=== PATIENT | male | born 1940 | race Caucasian/White ===

== ENCOUNTER 2016-09-09 09:41 | Emergency (ER) | payer OTHER ==
[~2016-09-09] VITALS: Ht 175.3 cm; Wt 89.1 kg
[~2016-09-09 09:41] MED LIST: ATARAX,VISTARIL25 MG PO; AVENTYL,PAMELOR10 M1 NG; AVONEX30 MCG/0.5 IM; AVONEX30 MICROGR IM; BACLOFEN10 MG PO; BETASERON0.3 MG SC; BETASERON0.3 MG SQ; BUDEPRION XL150 MG PO; BUPROPION HCL100 MG PO; Bactrim,Septra DS 80 PO; CALCIUM; CALCIUM 600 +1 EAC1 PO; CALCIUM 600 +1 EAC5 PO; CEFTIN250 MG PO; CIPROFLOXACIN500 M1 PO; CRANBERRY500 M2 PO; CRANBERRY500 MG PO; Cipro PO; DONEPEZIL HCL10 MG PO; EXCEDRIN EXTRA1 EACH PO; GABAPENTIN300 M1 PO; GABAPENTIN300 MG PO; HYDROCORTISONE30 G2 TP; LEVAQUIN500 MG PO; LISINOPRIL10 MG PO; Levaquin PO; Lioresal PO; MACROBID100 MG PO; MANDELAMINE500 MG PO; METHENAMINE HIPP1 G1 PO; MUCUS RELIEF C400 MG; NEURONTIN300 MG PO; OSCAL, OYSTER500 MG; OSCAL, OYSTER500 MG PO; PAROXETINE HCL20 MG PO; PAXIL20 M1 PO; PAXIL20 MG PO; Paxil PO; UTAC TABLET1 EACH PO; VESICARE5 MG PO; WELLBUTRIN XL150 MG PO; WELLBUTRIN100 MG PO; Wellbutrin PO; Wellbutrin SR PO; ZESTORETIC,P1 TABLET PO; ZESTRIL,PRINIVI10 M1 PO; ZESTRIL,PRINIVI10 MG PO; ZESTRIL10 MG PO; ZYVOX600 MG PO; Zestoretic,Prinzide PO; [UNRECOGNIZED DRUG - CODE] PO; [UNRECOGNIZED DRUG - OTHER] PO
[2016-09-09 10:38] LABS: EOSINOPHIL (%) 6.7 % (0-5); EOSINOPHIL COUNT 0.4 K/uL (0-0.3); HEMATOCRIT 36.3 % (38.0-50.0); LYMPHOCYTE COUNT 1.6 K/uL (1.0-2.8); MCH 29.4 PG (29.0-34.0); MCHC 32.5 G/DL (30.0-36.0); MCV 90.5 FL (86-99); MEAN PLAT.VOLUME 10.7 uM^3 (9.0-12.4); MONOCYTE COUNT 0.6 K/uL (0-0.8); NEUTROPHIL (%) 55.9 % (45-76); NEUTROPHIL COUNT 3.2 K/uL (1.8-6.4); PLATELET COUNT 198 K/uL (156-360); RBC DIS.WIDTH-CV 13.8 % (11.8-14.6); RBC DIS.WIDTH-SD 44.7 % (39-53); RED BLOOD COUNT 4.01 M/uL (4.00-5.50); WHITE BLOOD COUNT 5.7 K/uL (4.1-10.2)
[2016-09-09 10:46] LABS: CHLORIDE 106 mEq/L (99-109); POTASSIUM 3.6 mEq/L (3.7-5.4); SODIUM 142 mEq/L (136-147)
[2016-09-09 10:48] LABS: GLUCOSE 90 mg/dL (70-99)
[2016-09-09 10:50] LABS: ANION GAP 6 MEQ/L (2-14); TOTAL BILIRUBIN 0.5 mg/dL (0.0-1.0)
[2016-09-09 10:52] LABS: ALKALINE PHOSPHATASE 59 IU/L (3-129); GFR ESTIMATE (CALCULATED) > 59 mL/min/
[2016-09-09 10:53] LABS: UREA NITROGEN (BUN) 15 mg/dL (9-23)
[2016-09-09 10:55] LABS: LIPASE 31 U/L (1.0-51.0)
[2016-09-09 10:58] LABS: TROP-I INTERPRETATION NEGATIVE; TROPONIN-I < 0.01 ng/mL (0.0-0.30)
[2016-09-09 11:24] LABS: ADD MIUA? YES; BILIRUBIN NEGATIVE; BLOOD NEGATIVE; COLOR YELLOW ((YELLOW)); GLUCOSE (STRIP) NEGATIVE; KETONES NEGATIVE; LEUKOCYTES LARGE; NITRITE NEGATIVE; PROTEIN (STRIP) NEGATIVE; SPECIFIC GRAVITY 1.024 (1.000-1.030); UROBILINOGEN 0.2 MG/DL (0.2-1.0)
[2016-09-09 11:42] LABS: BACTERIA RARE /HPF; CALCIUM OXALATE CRYSTALS 1+ /HPF; EPITHELIAL CELLS RARE /HPF; HYALINE CASTS 0-5 /LPF; MUCUS 4+ /LPF; UCUL ADDED? NO; WHITE BLOOD CELLS 30-40 /HPF (0-5)
[2016-09-09] MEDS ORDERED: LEVAQUIN750 MG PO (12:41)
[2016-09-09] MEDS ORDERED: FLAGYL500 MG PO (12:41)
[2016-09-09] MEDS ORDERED: ZOFRAN4 MG PO (12:42)
[2016-09-09 13:14] VITALS: BP 152/76
== END 2016-09-09 13:20 | disposition home or self-care (01) ==
LOC: EME 09:41
PROVIDERS: Emergency Medicine
DX: N39.0 Urinary tract infection, site not specified (principal); K59.00 Constipation, unspecified; K62.89 Other specified diseases of anus and rectum; E78.5 Hyperlipidemia, unspecified; E11.9 Type 2 diabetes mellitus without complications; I10 Essential (primary) hypertension; Z87.440 Personal history of urinary (tract) infections; Z88.2 Allergy status to sulfonamides; Z88.0 Allergy status to penicillin
CPT/HCPCS: 74177; 80053; 81003; 83605; 83690; 84484; 85025; 93005; 99281; 99285; J7030

== ENCOUNTER 2016-10-18 14:45 | Emergency (ER) | payer OTHER ==
[~2016-10-18] VITALS: Ht 175.3 cm; Wt 73.0 kg
[~2016-10-18 14:45] MED LIST changes: +FLAGYL500 MG PO; +LEVAQUIN750 MG PO; +ZOFRAN4 MG PO
[2016-10-18 17:20] LABS: ADD MIUA? YES; BILIRUBIN NEGATIVE; BLOOD SMALL; COLOR YELLOW ((YELLOW)); GLUCOSE (STRIP) NEGATIVE; KETONES NEGATIVE; LEUKOCYTES MODERATE; NITRITE NEGATIVE; PROTEIN (STRIP) NEGATIVE; SPECIFIC GRAVITY 1.015 (1.000-1.030); UROBILINOGEN 0.2 MG/DL (0.2-1.0)
[2016-10-18 17:27] LABS: BACTERIA NONE SEEN /HPF; CASTS PRESENT /LPF; CRYSTALS NONE SEEN; EPITHELIAL CELLS RARE /HPF; HYALINE CASTS 0-5 /LPF; MUCUS TRACE /LPF; UCUL ADDED? NO; WHITE BLOOD CELLS 30-40 /HPF (0-5)
[2016-10-18 17:54] VITALS: BP 138/68
== END 2016-10-18 17:55 | disposition home or self-care (01) ==
LOC: EME 14:45
PROVIDERS: Emergency Medicine
PROC: 0T9B70Z Drainage of Bladder with Drainage Device, Via Natural or Artificial Opening (ICD-10-PCS; principal; 2016-10-18)
DX: Z46.6 Encounter for fitting and adjustment of urinary device (principal); R32 Unspecified urinary incontinence
CPT/HCPCS: 81003; 87086; 99281; 99285

== ENCOUNTER 2016-10-21 18:05 | Emergency (ER) | payer OTHER ==
[~2016-10-21] VITALS: Ht 175.3 cm; Wt 96.3 kg
[2016-10-21 21:43] VITALS: BP 111/55
== END 2016-10-21 21:49 | disposition home or self-care (01) ==
LOC: RME 18:05 → EME 18:05 → RME 21:49
PROC: 0T9B70Z Drainage of Bladder with Drainage Device, Via Natural or Artificial Opening (ICD-10-PCS; principal; 2016-10-21)
DX: Z46.6 Encounter for fitting and adjustment of urinary device (principal); R32 Unspecified urinary incontinence; J45.909 Unspecified asthma, uncomplicated; E11.9 Type 2 diabetes mellitus without complications; I10 Essential (primary) hypertension; Z87.440 Personal history of urinary (tract) infections; G35 Multiple sclerosis; Z88.8 Allergy status to other drugs, medicaments and biological substances; Z88.1 Allergy status to other antibiotic agents; Z88.2 Allergy status to sulfonamides; Z88.0 Allergy status to penicillin
CPT/HCPCS: 99281; 99283

== ENCOUNTER 2016-11-17 08:47 | Emergency (ER) | payer OTHER ==
[~2016-11-17] VITALS: Ht 175.3 cm; Wt 85.7 kg
[2016-11-17 09:24] LABS: HEMATOCRIT 40.3 % (38.0-50.0); MCH 29.2 PG (29.0-34.0); MCHC 32.3 G/DL (30.0-36.0); MCV 90.6 FL (86-99); PLATELET COUNT 231 K/uL (156-360); RBC DIS.WIDTH-SD 42.5 % (39-53); RED BLOOD COUNT 4.45 M/uL (4.00-5.50); WHITE BLOOD COUNT 5.7 K/uL (4.1-10.2)
[2016-11-17 09:33] LABS: CHLORIDE 103 mEq/L (99-109); POTASSIUM 3.6 mEq/L (3.7-5.4); SODIUM 141 mEq/L (136-147)
[2016-11-17 09:36] LABS: GLUCOSE 99 mg/dL (70-99)
[2016-11-17 09:37] LABS: ANION GAP 8 MEQ/L (2-14)
[2016-11-17 09:38] LABS: TOTAL BILIRUBIN 0.6 mg/dL (0.0-1.0)
[2016-11-17 09:39] LABS: ALKALINE PHOSPHATASE 61 IU/L (3-129); GFR ESTIMATE (CALCULATED) > 59 mL/min/
[2016-11-17 09:40] LABS: UREA NITROGEN (BUN) 17 mg/dL (9-23)
[2016-11-17 17:04] VITALS: BP 108/68
== END 2016-11-17 17:06 | disposition home or self-care (01) ==
LOC: EME 08:47
PROVIDERS: Nurse Practitioner Family
DX: R53.1 Weakness (principal); G35 Multiple sclerosis; E11.9 Type 2 diabetes mellitus without complications; E78.5 Hyperlipidemia, unspecified; I10 Essential (primary) hypertension
CPT/HCPCS: 70450; 71020; 80053; 81003; 85027; 93005; 99281; 99284

== ENCOUNTER 2017-01-11 17:02 | Inpatient (IN) | payer OTHER ==
[~2017-01-11] VITALS: Ht 172.7 cm; Wt 86.5 kg
[2017-01-11 17:29] LABS: ADD MIUA? YES; BILIRUBIN NEGATIVE; BLOOD NEGATIVE; COLOR YELLOW ((YELLOW)); GLUCOSE (STRIP) NEGATIVE; KETONES NEGATIVE; LEUKOCYTES LARGE; NITRITE POSITIVE; PROTEIN (STRIP) 100
[2017-01-11 17:55] LABS: BACTERIA 3+ /HPF; EPITHELIAL CELLS RARE /HPF; MUCUS 3+ /LPF; RED BLOOD CELLS 0-5 /HPF (0-5); UCUL ADDED? YES; WHITE BLOOD CELLS TNTC /HPF (0-5)
[2017-01-11 17:58] LABS: AMORPHOUS URATES CRYSTALS 1+; WHITE CELL CASTS 0-5 /LPF
[2017-01-11 18:27] LABS: EOSINOPHIL (%) 5.5 % (0-5); EOSINOPHIL COUNT 0.3 K/uL (0-0.3); HEMATOCRIT 38.5 % (38.0-50.0); IMMATURE GRANULOCYTE (%) 0.3 % (0.0-0.7); INSTRUMENT ABS NEUTROPHIL CT 3.6 K/uL; LYMPHOCYTE COUNT 1.5 K/uL (1.0-2.8); MCH 29.1 PG (29.0-34.0); MCHC 31.9 G/DL (30.0-36.0); MEAN PLAT.VOLUME 10.9 uM^3 (9.0-12.4); MONOCYTE (%) 8.8 % (3-12); MONOCYTE COUNT 0.5 K/uL (0-0.8); NEUTROPHIL COUNT 3.6 K/uL (1.8-6.4); PLATELET COUNT 239 K/uL (156-360); RBC DIS.WIDTH-CV 13.2 % (11.8-14.6); RBC DIS.WIDTH-SD 43.7 % (39-53); RED BLOOD COUNT 4.23 M/uL (4.00-5.50)
[2017-01-11 18:38] LABS: CHLORIDE 106 mEq/L (99-109); POTASSIUM 4.2 mEq/L (3.7-5.4); SODIUM 141 mEq/L (136-147)
[2017-01-11 18:40] LABS: GLUCOSE 103 mg/dL (70-99)
[2017-01-11 18:41] LABS: ANION GAP 6 MEQ/L (2-14)
[2017-01-11 18:42] LABS: TOTAL BILIRUBIN 0.5 mg/dL (0.0-1.0)
[2017-01-11 18:44] LABS: ALKALINE PHOSPHATASE 71 IU/L (3-129); GFR ESTIMATE (CALCULATED) > 59 mL/min/
[2017-01-11 18:45] LABS: UREA NITROGEN (BUN) 19 mg/dL (9-23)
[2017-01-11 18:50] LABS: TROP-I INTERPRETATION NEGATIVE; TROPONIN-I < 0.01 ng/mL (0.0-0.30)
[2017-01-11] MEDS ORDERED: NEURONTIN300 MG PO (20:02)
[2017-01-11] MEDS ORDERED: TEMAZEPAM30 MG PO (20:03)
[2017-01-11] MEDS ORDERED: CEFPODOXIME PR100 MG PO (20:05)
[2017-01-11 23:19] VITALS: BP 184/75
[2017-01-12 00:09] LABS: POINT-OF-CARE METER ID UU13113700
[2017-01-12 04:45] VITALS: BP 149/80
[2017-01-12 05:33] LABS: POINT-OF-CARE METER ID UU13113831
[2017-01-12 06:07] LABS: HEMATOCRIT 37.1 % (38.0-50.0); MCH 30.1 PG (29.0-34.0); MCHC 32.9 G/DL (30.0-36.0); MCV 91.6 FL (86-99); MEAN PLAT.VOLUME 11.6 uM^3 (9.0-12.4); PLATELET COUNT 224 K/uL (156-360); RBC DIS.WIDTH-CV 13.1 % (11.8-14.6); RED BLOOD COUNT 4.05 M/uL (4.00-5.50); WHITE BLOOD COUNT 6.1 K/uL (4.1-10.2)
[2017-01-12 06:43] LABS: ANION GAP 10 MEQ/L (2-14); CHLORIDE 106 MEQ/L (99-109); GFR ESTIMATE (CALCULATED) > 59 mL/min/; GLUCOSE 90 mg/dL (70-99); POTASSIUM 3.7 MEQ/L (3.7-5.4); SAMPLE HEMOLYSIS CHECK 0; SAMPLE ICTERIC CHECK 0; SAMPLE LIPEMIA CHECK 0; SODIUM 142 MEQ/L (136-147); UREA NITROGEN (BUN) 17 mg/dL (9-23)
[2017-01-12 07:32] VITALS: BP 145/84
[2017-01-12 10:02] LABS: POINT-OF-CARE METER ID UU13113700
[2017-01-12 11:41] VITALS: BP 164/83
[2017-01-12 14:50] LABS: POINT-OF-CARE METER ID UU13113831
[2017-01-12 16:14] VITALS: BP 169/99
[2017-01-12 19:34] VITALS: BP 168/95
[2017-01-12 22:17] VITALS: BP 155/88
[2017-01-13 02:48] VITALS: BP 178/95
[2017-01-13 06:41] VITALS: BP 163/72
[2017-01-13 07:11] LABS: EOSINOPHIL (%) 0.6 % (0-5); IMMATURE GRANULOCYTE (%) 0.3 % (0.0-0.7); INSTRUMENT ABS NEUTROPHIL CT 4.4 K/uL; LYMPHOCYTE COUNT 1.4 K/uL (1.0-2.8); MCH 29.3 PG (29.0-34.0); MCHC 32.9 G/DL (30.0-36.0); MEAN PLAT.VOLUME 11.7 uM^3 (9.0-12.4); MONOCYTE (%) 10.8 % (3-12); MONOCYTE COUNT 0.7 K/uL (0-0.8); NEUTROPHIL COUNT 4.4 K/uL (1.8-6.4); PLATELET COUNT 260 K/uL (156-360); RBC DIS.WIDTH-CV 12.9 % (11.8-14.6); RED BLOOD COUNT 4.27 M/uL (4.00-5.50); WHITE BLOOD COUNT 6.6 K/uL (4.1-10.2)
[2017-01-13 07:34] LABS: ANION GAP 13 MEQ/L (2-14); CHLORIDE 108 MEQ/L (99-109); GFR ESTIMATE (CALCULATED) > 59 mL/min/; GLUCOSE 101 mg/dL (70-99); POTASSIUM 3.5 MEQ/L (3.7-5.4); SAMPLE HEMOLYSIS CHECK 0; SAMPLE ICTERIC CHECK 0; SAMPLE LIPEMIA CHECK 0; SODIUM 143 MEQ/L (136-147); UREA NITROGEN (BUN) 16 mg/dL (9-23)
[2017-01-13 11:03] VITALS: BP 169/82
[2017-01-13 15:15] VITALS: BP 164/86
[2017-01-13 22:44] VITALS: BP 131/82
[2017-01-14 06:40] VITALS: BP 174/87
[2017-01-14 14:50] VITALS: BP 175/88
[2017-01-14 22:59] VITALS: BP 170/68
[2017-01-15 06:50] VITALS: BP 144/80
[2017-01-15 15:05] VITALS: BP 138/77
[2017-01-15 23:40] VITALS: BP 131/84
[2017-01-16 07:00] VITALS: BP 119/67
[2017-01-16 23:25] VITALS: BP 142/77
[2017-01-17 08:19] VITALS: BP 135/80
[2017-01-17 18:26] VITALS: BP 132/79
[2017-01-17 22:57] VITALS: BP 163/78
[2017-01-18 06:05] LABS: EOSINOPHIL COUNT 0.3 K/uL (0-0.3); HEMATOCRIT 36.3 % (38.0-50.0); IMMATURE GRANULOCYTE (%) 0.3 % (0.0-0.7); INSTRUMENT ABS NEUTROPHIL CT 3.8 K/uL; LYMPHOCYTE COUNT 2.2 K/uL (1.0-2.8); MCH 29.3 PG (29.0-34.0); MCHC 32.5 G/DL (30.0-36.0); MCV 90.1 FL (86-99); MEAN PLAT.VOLUME 11.1 uM^3 (9.0-12.4); MONOCYTE (%) 10.4 % (3-12); MONOCYTE COUNT 0.7 K/uL (0-0.8); NEUTROPHIL COUNT 3.8 K/uL (1.8-6.4); PLATELET COUNT 225 K/uL (156-360); RBC DIS.WIDTH-CV 13.2 % (11.8-14.6); RED BLOOD COUNT 4.03 M/uL (4.00-5.50)
[2017-01-18 06:45] LABS: ANION GAP 6 MEQ/L (2-14); CHLORIDE 105 MEQ/L (99-109); GFR ESTIMATE (CALCULATED) > 59 mL/min/; GLUCOSE 97 mg/dL (70-99); POTASSIUM 3.4 MEQ/L (3.7-5.4); SAMPLE HEMOLYSIS CHECK 0; SAMPLE ICTERIC CHECK 0; SAMPLE LIPEMIA CHECK 0; SODIUM 143 MEQ/L (136-147); UREA NITROGEN (BUN) 18 mg/dL (9-23)
[2017-01-18 07:18] VITALS: BP 138/73
[2017-01-18 16:05] VITALS: BP 129/71
[2017-01-18 20:29] VITALS: BP 135/64
[2017-01-18 23:21] VITALS: BP 165/61
[2017-01-19 06:50] VITALS: BP 132/80
[2017-01-19] MEDS ORDERED: CEPHALEXIN500 MG PO (14:05)
[2017-01-19] MEDS ORDERED: FLORASTOR250 MG PO (14:07)
== END 2017-01-19 16:41 | DRG 698 ==
LOC: EME 17:02 → EDOF 21:58 → 5WEST 23:12 → 5EAST 01-12 15:21 → 5WEST 01-12 15:21 → 5EAST 01-12 22:10
PROVIDERS: Emergency Medicine; Hospitalist; Internal Medicine; Student in an Organized Health Care Education/Training Program
DX: T83.518A Infection and inflammatory reaction due to other urinary catheter, initial encounter (principal); N39.0 Urinary tract infection, site not specified; E11.9 Type 2 diabetes mellitus without complications; G35 Multiple sclerosis; I10 Essential (primary) hypertension; Y84.6 Urinary catheterization as the cause of abnormal reaction of the patient, or of later complication, without mention of misadventure at the time of the procedure; J45.909 Unspecified asthma, uncomplicated; E78.5 Hyperlipidemia, unspecified; B96.20 Unspecified Escherichia coli [E. coli] as the cause of diseases classified elsewhere; N31.9 Neuromuscular dysfunction of bladder, unspecified; G92 Toxic encephalopathy; I73.9 Peripheral vascular disease, unspecified
CPT/HCPCS: 70450; 71010; 80048; 80053; 81003; 82948; 83605; 84484; 85025; 85027; 87040; 87077; 87086; 87186; 92610 GN; 97530 GO; 97530 GP; 99281; 99285; G0378; J0696; J1630; J1644; J7030; J7042; J7050

== ENCOUNTER 2017-06-22 02:02 | Inpatient (IN) | payer OTHER ==
[~2017-06-22] VITALS: Ht 172.7 cm; Wt 82.7 kg
[~2017-06-22 02:02] MED LIST changes: +CEFPODOXIME PR100 MG PO; +CEPHALEXIN500 MG PO; +FLORASTOR250 MG PO; +TEMAZEPAM30 MG PO
[2017-06-22 03:05] LABS: HEMATOCRIT 41.1 % (38.0-50.0); MCHC 33.3 G/DL (30.0-36.0); MCV 89.9 FL (86-99); RBC DIS.WIDTH-CV 13.2 % (11.8-14.6); RBC DIS.WIDTH-SD 43.2 % (39-53); RED BLOOD COUNT 4.57 M/uL (4.00-5.50); WHITE BLOOD COUNT 6.7 K/uL (4.1-10.2)
[2017-06-22 03:17] LABS: CHLORIDE 105 mEq/L (99-109); SODIUM 140 mEq/L (136-147)
[2017-06-22 03:19] LABS: GLUCOSE 134 mg/dL (70-99)
[2017-06-22 03:20] LABS: ANION GAP 9 MEQ/L (2-14)
[2017-06-22 03:21] LABS: TOTAL BILIRUBIN 0.7 mg/dL (0.0-1.0)
[2017-06-22 03:23] LABS: ALKALINE PHOSPHATASE 70 IU/L (3-129); GFR ESTIMATE (CALCULATED) > 59 mL/min/ (58.99-99999)
[2017-06-22 03:24] LABS: UREA NITROGEN (BUN) 15 mg/dL (9-23)
[2017-06-22 03:26] LABS: LIPASE 13 U/L (1.0-51.0)
[2017-06-22 03:37] LABS: INTERNAL CONTROL VALID? YES
[2017-06-22 03:50] LABS: ADD MIUA? YES; BILIRUBIN NEGATIVE; BLOOD MODERATE; COLOR YELLOW ((YELLOW)); GLUCOSE (STRIP) NEGATIVE; KETONES NEGATIVE; LEUKOCYTES LARGE; NITRITE POSITIVE; PROTEIN (STRIP) 30; SPECIFIC GRAVITY 1.016 (1.000-1.030); UROBILINOGEN 0.2 MG/DL (0.2-1.0)
[2017-06-22 04:33] LABS: BACTERIA 3+ /HPF; EPITHELIAL CELLS 2+ /HPF; MUCUS 3+ /LPF; RED BLOOD CELLS TNTC /HPF (0-5); WHITE BLOOD CELLS TNTC /HPF (0-5)
[2017-06-22 05:45] LABS: EOSINOPHIL (%) 2.5 % (0-5); EOSINOPHIL COUNT 0.2 K/uL (0-0.3); IMMATURE GRANULOCYTE (%) 0.4 % (0.0-0.7); INSTRUMENT ABS NEUTROPHIL CT 5.4 K/uL; LYMPHOCYTE COUNT 0.7 K/uL (1.0-2.8); MONOCYTE (%) 6.4 % (3-12); MONOCYTE COUNT 0.4 K/uL (0-0.8); NEUTROPHIL (%) 80.3 % (45-76); NEUTROPHIL COUNT 5.4 K/uL (1.8-6.4)
[2017-06-22 05:51] LABS: CARBON DIOXIDE (BICARBONATE) 34.2 MEQ/L (20-31)
[2017-06-22 05:59] LABS: INTER. NORMALIZED RATIO 1.2; PROTHROMBIN TIME 13.2 SEC (10.2-12.9)
[2017-06-22 07:08] VITALS: BP 138/75
[2017-06-22 07:33] LABS: PLAT.SUFFICIENCY DECREASED
[2017-06-22 07:36] LABS: PLATELET CLUMPS PRESENT - PLATELET C
[2017-06-22 10:57] VITALS: BP 105/56
[2017-06-22] MEDS ORDERED: LISINOPRIL10 MG PO (12:05)
[2017-06-22] MEDS ORDERED: CALCIUM 600 +1 EA12 PO (12:07)
[2017-06-22 14:55] VITALS: BP 130/68
[2017-06-22 19:51] VITALS: BP 133/79
[2017-06-22 23:27] VITALS: BP 128/65
[2017-06-23 03:57] VITALS: BP 114/70
[2017-06-23 06:17] LABS: EOSINOPHIL (%) 6.7 % (0-5); EOSINOPHIL COUNT 0.3 K/uL (0-0.3); HEMATOCRIT 34.5 % (38.0-50.0); INSTRUMENT ABS NEUTROPHIL CT 2.2 K/uL; LYMPHOCYTE COUNT 1.3 K/uL (1.0-2.8); MCH 29.7 PG (29.0-34.0); MCHC 32.5 G/DL (30.0-36.0); MCV 91.5 FL (86-99); MONOCYTE (%) 11.3 % (3-12); MONOCYTE COUNT 0.5 K/uL (0-0.8); NEUTROPHIL (%) 51.5 % (45-76); NEUTROPHIL COUNT 2.2 K/uL (1.8-6.4); PLATELET COUNT 176 K/uL (156-360); RBC DIS.WIDTH-CV 13.5 % (11.8-14.6); RBC DIS.WIDTH-SD 45.6 % (39-53); RED BLOOD COUNT 3.77 M/uL (4.00-5.50); WHITE BLOOD COUNT 4.3 K/uL (4.1-10.2)
[2017-06-23 07:39] LABS: ALKALINE PHOSPHATASE 54 IU/L (3-129); ANION GAP 8 MEQ/L (2-14); CHLORIDE 107 MEQ/L (99-109); GFR ESTIMATE (CALCULATED) > 59 mL/min/ (58.99-99999); GLUCOSE 101 mg/dL (70-99); POTASSIUM 3.7 MEQ/L (3.7-5.4); SAMPLE HEMOLYSIS CHECK 0; SAMPLE ICTERIC CHECK 0; SAMPLE LIPEMIA CHECK 0; SODIUM 141 MEQ/L (136-147); TOTAL BILIRUBIN 0.3 MG/DL (0.0-1.0); UREA NITROGEN (BUN) 13 mg/dL (9-23)
[2017-06-23 08:00] VITALS: BP 125/77
[2017-06-23 10:54] VITALS: BP 121/61
[2017-06-23 15:56] VITALS: BP 111/66
[2017-06-23 20:30] VITALS: BP 176/66
[2017-06-24 00:42] VITALS: BP 174/84
[2017-06-24 03:58] VITALS: BP 178/86
[2017-06-24 06:19] LABS: EOSINOPHIL (%) 3.9 % (0-5); EOSINOPHIL COUNT 0.3 K/uL (0-0.3); HEMATOCRIT 35.1 % (38.0-50.0); IMMATURE GRANULOCYTE (%) 0.2 % (0.0-0.7); INSTRUMENT ABS NEUTROPHIL CT 3.9 K/uL; LYMPHOCYTE COUNT 1.6 K/uL (1.0-2.8); MCH 29.6 PG (29.0-34.0); MCV 89.5 FL (86-99); MEAN PLAT.VOLUME 10.8 uM^3 (9.0-12.4); MONOCYTE (%) 10.6 % (3-12); MONOCYTE COUNT 0.7 K/uL (0-0.8); NEUTROPHIL (%) 60.4 % (45-76); NEUTROPHIL COUNT 3.9 K/uL (1.8-6.4); PLATELET COUNT 183 K/uL (156-360); RBC DIS.WIDTH-CV 13.2 % (11.8-14.6); RBC DIS.WIDTH-SD 43.2 % (39-53); RED BLOOD COUNT 3.92 M/uL (4.00-5.50); WHITE BLOOD COUNT 6.4 K/uL (4.1-10.2)
[2017-06-24 07:02] LABS: ANION GAP 7 MEQ/L (2-14); CHLORIDE 103 MEQ/L (99-109); GFR ESTIMATE (CALCULATED) > 59 mL/min/ (58.99-99999); GLUCOSE 86 mg/dL (70-99); POTASSIUM 3.6 MEQ/L (3.7-5.4); SAMPLE HEMOLYSIS CHECK 0; SAMPLE ICTERIC CHECK 0; SAMPLE LIPEMIA CHECK 0; SODIUM 138 MEQ/L (136-147); UREA NITROGEN (BUN) 7 mg/dL (9-23)
[2017-06-24 08:55] VITALS: BP 179/85
[2017-06-24 11:36] VITALS: BP 118/59
[2017-06-24 16:23] VITALS: BP 138/78
== END 2017-06-24 20:35 | disposition home health service (06) | DRG 698 ==
LOC: EME → EDBD 02:02 → EME 02:02 → 5EAST 05:16 → EDOF 05:16 → ENRESERV 05:18 → 5EAST 07:04
PROVIDERS: Emergency Medicine; Internal Medicine; Physician Assistant Medical
DX: T83.511A Infection and inflammatory reaction due to indwelling urethral catheter, initial encounter (principal); N39.0 Urinary tract infection, site not specified; A41.9 Sepsis, unspecified organism; K52.9 Noninfective gastroenteritis and colitis, unspecified; E86.0 Dehydration; G35 Multiple sclerosis; N31.9 Neuromuscular dysfunction of bladder, unspecified; R41.82 Altered mental status, unspecified; Y84.6 Urinary catheterization as the cause of abnormal reaction of the patient, or of later complication, without mention of misadventure at the time of the procedure; I10 Essential (primary) hypertension; E78.5 Hyperlipidemia, unspecified; E11.9 Type 2 diabetes mellitus without complications; J45.909 Unspecified asthma, uncomplicated; F32.9 Major depressive disorder, single episode, unspecified; F41.9 Anxiety disorder, unspecified; G89.29 Other chronic pain; M54.5 Low back pain; Z74.01 Bed confinement status; Z87.440 Personal history of urinary (tract) infections
CPT/HCPCS: 74177; 80048; 80053; 81003; 82803; 83605; 83630; 83690; 83735; 85025; 85027; 85610; 85651; 87040; 87086; 87177; 87493; 87506; 97530 GO; 99281; 99285; J0696; J1644; J2405; J7030; J7120

== ENCOUNTER 2017-07-26 20:08 | Inpatient (IN) | payer OTHER ==
[~2017-07-26] VITALS: Ht 182.9 cm; Wt 89.1 kg
[~2017-07-26 20:08] MED LIST changes: +CALCIUM 600 +1 EA12 PO
[2017-07-26 21:06] LABS: BASOPHIL (%) 0.2 % (0-1); EOSINOPHIL (%) 0.8 % (0-5); EOSINOPHIL COUNT 0.1 K/uL (0-0.3); HEMATOCRIT 40.3 % (38.0-50.0); HEMOGLOBIN 13.3 G/DL (12.5-16.6); IMMATURE GRANULOCYTE (%) 0.3 % (0.0-0.7); LYMPHOCYTE COUNT 1.4 K/uL (1.0-2.8); MCH 29.6 PG (29.0-34.0); MCV 89.6 FL (86-99); MONOCYTE COUNT 0.5 K/uL (0-0.8); NEUTROPHIL (%) 76.7 % (45-76); NEUTROPHIL COUNT 6.6 K/uL (1.8-6.4); PLATELET COUNT 311 K/uL (156-360); RBC DIS.WIDTH-CV 13.1 % (11.8-14.6); RBC DIS.WIDTH-SD 42.8 % (39-53); WHITE BLOOD COUNT 8.6 K/uL (4.1-10.2)
[2017-07-26 21:15] LABS: ALBUMIN 3.6 g/dL (3.2-4.8); CHLORIDE 105 mEq/L (99-109); SODIUM 141 mEq/L (136-147)
[2017-07-26 21:17] LABS: GLUCOSE 128 mg/dL (70-99)
[2017-07-26 21:19] LABS: TOTAL BILIRUBIN 0.5 mg/dL (0.0-1.0)
[2017-07-26 21:21] LABS: ALKALINE PHOSPHATASE 61 IU/L (3-129); GFR ESTIMATE (CALCULATED) > 59 mL/min/ (58.99-99999)
[2017-07-26 21:22] LABS: AST (GOT) 15 IU/L (2-34); UREA NITROGEN (BUN) 19 mg/dL (9-23)
[2017-07-26 21:24] LABS: ALT (GPT) 11 IU/L (3-49)
[2017-07-26 21:29] LABS: TROP-I INTERPRETATION NEGATIVE; TROPONIN-I < 0.01 ng/mL (0.0-0.30)
[2017-07-26 22:08] LABS: APPEARANCE CLOUDY ((CLEAR)); BILIRUBIN NEGATIVE; BLOOD LARGE; COLOR YELLOW ((YELLOW)); GLUCOSE (STRIP) NEGATIVE; KETONES NEGATIVE; LEUKOCYTES LARGE; NITRITE POSITIVE; PROTEIN (STRIP) 100; SPECIFIC GRAVITY 1.025 (1.000-1.030); UROBILINOGEN 0.2 MG/DL (0.2-1.0)
[2017-07-26 22:20] LABS: BACTERIA NONE SEEN /HPF; EPITHELIAL CELLS RARE /HPF; MUCUS NONE SEEN /LPF; RED BLOOD CELLS 40-50 /HPF (0-5); UCUL ADDED? YES; WHITE BLOOD CELLS TNTC /HPF (0-5)
[2017-07-27 19:38] VITALS: BP 126/58
[2017-07-28 00:54] VITALS: BP 160/80
[2017-07-28 04:44] VITALS: BP 160/80
[2017-07-28 07:16] VITALS: BP 133/59
[2017-07-28 07:34] LABS: CHLORIDE 107 MEQ/L (99-109); CREATININE 0.7 MG/DL (0.6-1.3); GFR ESTIMATE (CALCULATED) > 59 mL/min/ (58.99-99999); POTASSIUM 3.6 MEQ/L (3.7-5.4); SODIUM 140 MEQ/L (136-147); UREA NITROGEN (BUN) 12 mg/dL (9-23)
[2017-07-28 07:35] LABS: GLUCOSE 83 mg/dL (70-99)
[2017-07-28 07:44] LABS: HEMATOCRIT 32.2 % (38.0-50.0); MCH 29.8 PG (29.0-34.0); MCHC 32.9 G/DL (30.0-36.0); MCV 90.4 FL (86-99); PLAT.SUFFICIENCY ADEQUATE; RBC DIS.WIDTH-CV 12.9 % (11.8-14.6); RBC DIS.WIDTH-SD 42.8 % (39-53)
[2017-07-28 07:45] LABS: HEMOGLOBIN 10.6 G/DL (12.5-16.6); PLATELET COUNT 208 K/uL (156-360); RED BLOOD COUNT 3.56 M/uL (4.00-5.50)
[2017-07-28 14:59] VITALS: BP 124/64
[2017-07-28] MEDS ORDERED: LISINOPRIL10 MG PO (17:38)
[2017-07-28] MEDS ORDERED: CLONIDINE HCL0.1 MG PO (17:39)
[2017-07-28] MEDS ORDERED: PAROXETINE HCL20 MG PO (17:40)
[2017-07-28] MEDS ORDERED: GABAPENTIN300 MG PO (17:40)
[2017-07-28] MEDS ORDERED: BUPROPION XL150 MG PO (17:46)
[2017-07-28] MEDS ORDERED: METHENAMINE HIPP1 G1 PO (17:47)
[2017-07-28 23:38] VITALS: BP 149/75
[2017-07-29 07:35] VITALS: BP 142/67
[2017-07-29 15:31] VITALS: BP 152/71
[2017-07-29 23:43] VITALS: BP 159/86
[2017-07-30 08:07] VITALS: BP 155/73
[2017-07-30] MEDS ORDERED: HEPARIN SO5000 UNIT4 SC (15:03)
[2017-07-30] MEDS ORDERED: BUPROPION HCL150 M2 PO (15:03)
[2017-07-30] MEDS ORDERED: CEFEPIME HCL2 GM IV (15:03)
== END 2017-07-30 18:03 | DRG 698 ==
LOC: EME → EDBD 20:08 → 5SOUTH 07-27 04:32 → EDOF 07-27 04:32 → ENRESERV 07-27 04:33 → CANRESERV 07-27 05:58 → ENRESERV 07-27 05:59 → 5SOUTH 07-27 13:58
PROVIDERS: Emergency Medicine; Internal Medicine; Student in an Organized Health Care Education/Training Program
DX: T83.511A Infection and inflammatory reaction due to indwelling urethral catheter, initial encounter (principal); A41.9 Sepsis, unspecified organism; I10 Essential (primary) hypertension; E78.5 Hyperlipidemia, unspecified; G35 Multiple sclerosis; F32.9 Major depressive disorder, single episode, unspecified; E11.9 Type 2 diabetes mellitus without complications; J45.909 Unspecified asthma, uncomplicated; Y84.6 Urinary catheterization as the cause of abnormal reaction of the patient, or of later complication, without mention of misadventure at the time of the procedure; G93.41 Metabolic encephalopathy; A08.4 Viral intestinal infection, unspecified; F41.9 Anxiety disorder, unspecified; G89.29 Other chronic pain; G43.909 Migraine, unspecified, not intractable, without status migrainosus; N31.9 Neuromuscular dysfunction of bladder, unspecified; N39.0 Urinary tract infection, site not specified; B96.5 Pseudomonas (aeruginosa) (mallei) (pseudomallei) as the cause of diseases classified elsewhere; J98.11 Atelectasis; Z74.01 Bed confinement status; Z83.3 Family history of diabetes mellitus; Z87.891 Personal history of nicotine dependence; Z87.440 Personal history of urinary (tract) infections; Z88.1 Allergy status to other antibiotic agents; Z88.0 Allergy status to penicillin; Z88.2 Allergy status to sulfonamides; Z88.8 Allergy status to other drugs, medicaments and biological substances
CPT/HCPCS: 71045; 74177; 80048; 80053; 81003; 82948; 83605; 83880; 84484; 85025; 85027; 87040; 87077; 87086 GA; 87186; 93005; 99202; 99281; 99285; J0692; J1644; J7030; S0028